=== PATIENT | female | born 1945 | race Caucasian/White ===

== ENCOUNTER 2017-03-15 01:38 | Emergency (ER) | payer OTHER ==
[~2017-03-15] VITALS: Ht 162.6 cm; Wt 66.0 kg
[2017-03-15 01:41] VITALS: BP 178/89; PULSE 90; RESP 16; TEMP 98.5; O2SAT 97
[2017-03-15] MEDS ORDERED: DEXAMETHASONE SOD PHOS 4 MG/ML VIAL IM ONE (02:00)
--- NOTE | 2017-03-15 02:01 | PD ---
HPI Chief Complaint: Respiratory Symptoms Time Seen by Provider: 01:51 Travel History International Travel<30 days: No Contact w/Intl Traveler<30days: No Traveled to known affect area: No History of Present Illness HPI 72-year-old female complains of coughing congestion and shortness of breath and wheezing. Patient has history asthma. Patient states that she has been using inhaler twice a day. Last used inhaler was yesterday. Patient states that she has productive cough today. Patient stated that she has some burning pain on the chest wall. Patient denies any fever chills. Patient states that she has shortness of breath this evening. Patient states the cough is persistent and productive. Patient denies any history hypertension, diabetes, dyslipidemia. Patient is a nonsmoker. Patient denies any history of CAD. On a scale of 1-10 the pain is a 3. PFSH Past Medical History Asthma: Yes Diminished Hearing: No Respiratory: Yes (BRONCHIAL ASTHMA) Influenza Vaccination: No Past Surgical History Cholecystectomy: Yes Social History Alcohol Use: No Tobacco Use: No Substance Use: No Allergies-Medications (Allergen,Severity, Reaction): Coded Allergies: No Known Allergies (Unverified , 03/15/17) Reported Meds & Prescriptions Reported Meds & Active Scripts Active Reported Ventolin Hfa 18 GM Inh (Albuterol Sulfate) 90 Mcg/Act Aer 2 Puff INH Q4-6H PRN Review of Systems General / Constitutional: No: Fever Eyes: No: Visual changes HENT: No: Headaches Cardiovascular: Positive: Chest Pain or Discomfort Respiratory: Positive: Cough, Shortness of Breath Gastrointestinal: No: Abdominal Pain Genitourinary: No: Dysuria Musculoskeletal: No: Pain Skin: No Rash Neurologic: No: Weakness Psychiatric: No: Depression Endocrine: No: Polydipsia Hematologic/Lymphatic: No: Easy Bruising Physical Exam Narrative GENERAL: Well-nourished, well-developed patient. SKIN: Focused skin assessment warm/dry. HEAD: Normocephalic. EYES: No scleral icterus. No injection or drainage. NECK: Supple, trachea midline. No JVD or lymphadenopathy. CARDIOVASCULAR: Regular rate and rhythm without murmurs, gallops, or rubs. RESPIRATORY: Breath sounds equal bilaterally. No accessory muscle use. Patient has mild expiratory wheezes bilaterally. Few rhonchi at the bases. GASTROINTESTINAL: Abdomen soft, non-tender, nondistended. MUSCULOSKELETAL: No cyanosis, or edema. BACK: Nontender without obvious deformity. No CVA tenderness. Neurologic exam normal. Data Data Last Documented VS Vital Signs Date Time Temp Pulse Resp B/P Pulse Ox O2 Delivery O2 Flow Rate FiO2 03/15/17 02:12 96 21 03/15/17 02:05 Room Air 03/15/17 01:41 98.5 90 16 178/89 Orders Chest, Single Ap (03/15/17 01:54) Albuterol-Ipratropium Neb (Duoneb Neb) (03/15/17 02:00) Dexamethasone Inj (Decadron Inj) (03/15/17 02:00) Electrocardiogram (03/15/17 01:56) Complete Blood Count With Diff (03/15/17 01:56) Comprehensive Metabolic Panel (03/15/17 01:56) Creatine Kinase (Cpk) (03/15/17 01:56) Troponin I (03/15/17 01:56) B-Type Natriuretic Peptide (03/15/17 01:56) Prothrombin Time / Inr (Pt) (03/15/17 01:56) Act Partial Throm Time (Ptt) (03/15/17 01:56) Iv Access Insert/Monitor (03/15/17 01:56) Ecg Monitoring (03/15/17 01:56) Oximetry (03/15/17 01:56) CKMB (03/15/17 02:00) CKMB% (03/15/17 02:00) Labs Laboratory Tests Test 03/15/17 02:00 White Blood Count 5.4 TH/MM3 Red Blood Count 4.34 MIL/MM3 Hemoglobin 14.1 GM/DL Hematocrit 39.8 % Mean Corpuscular Volume 91.6 FL Mean Corpuscular Hemoglobin 32.5 PG Mean Corpuscular Hemoglobin 35.5 % Concent Red Cell Distribution Width 13.0 % Platelet Count 187 TH/MM3 Mean Platelet Volume 8.6 FL Neutrophils (%) (Auto) 52.5 % Lymphocytes (%) (Auto) 34.1 % Monocytes (%) (Auto) 12.3 % Eosinophils (%) (Auto) 0.2 % Basophils (%) (Auto) 0.9 % Neutrophils # (Auto) 2.9 TH/MM3 Lymphocytes # (Auto) 1.9 TH/MM3 Monocytes # (Auto) 0.7 TH/MM3 Eosinophils # (Auto) 0.0 TH/MM3 Basophils # (Auto) 0.0 TH/MM3 CBC Comment DIFF FINAL Differential Comment Prothrombin Time 10.7 SEC Prothromb Time International 1.0 RATIO Ratio Activated Partial 28.1 SEC Thromboplast Time Sodium Level 142 MEQ/L Potassium Level 4.1 MEQ/L Chloride Level 110 MEQ/L Carbon Dioxide Level 25.3 MEQ/L Anion Gap 7 MEQ/L Blood Urea Nitrogen 15 MG/DL Creatinine 1.04 MG/DL Estimat Glomerular Filtration 52 ML/MIN Rate Random Glucose 88 MG/DL Calcium Level 8.8 MG/DL Total Bilirubin 0.4 MG/DL Aspartate Amino Transf 39 U/L (AST/SGOT) Alanine Aminotransferase 27 U/L (ALT/SGPT) Alkaline Phosphatase 72 U/L Total Creatine Kinase 486 U/L Troponin I LESS THAN 0.02 NG/ML Total Protein 7.0 GM/DL Albumin 3.9 GM/DL MDM Medical Decision Making Medical Screen Exam Complete: Yes Emergency Medical Condition: Yes Interpretation(s) Last Impressions Chest X-Ray 03/15/17 0154 Signed Impressions: Service Date/Time: February 01:55 - CONCLUSION: Normal examination. David Jurado MD 2:54 AM. CBC within normal limit. 3:15 AM. CMP within normal limit. Creatinine 1.04. Total CK 486. Troponin normal. Differential Diagnosis Differential diagnosis including viral syndrome, bronchitis, pneumonia, acute exacerbation of asthma, angina, TN, PE, pneumothorax. Narrative Course 72-year-old female with coughing congestion shortness of breath wheezing and congestion chest wall pain Diagnosis Primary Impression: Atypical chest pain Additional Impression: Acute asthma exacerbation Qualified Code: J45.21 - Mild intermittent asthma with acute exacerbation Patient Instructions: General Instructions Additional Instructions: Continue with albuterol inhaler every 4 hours as directed. Prednisone is directed. Z-Ezequiel as directed. Follow-up with personal physician. Return if worse. Med/Other Pt SpecificInfo: Prescription(s) given Scripts Prednisone 20 Mg Tab20 Mg PO BID #10 TAB Prov:Abdulaziz Trejo MD 03/15/17 Azithromycin (Zithromax Z-Ezequiel)250 Mg Gwpy302 Mg PO DIRECTED #1 DSPK 500 MG (2 tabs) day 1, then 1 tab days 2-5. Prov:Abdulaziz Trejo MD 03/15/17 Disposition: 01 DISCHARGE HOME Condition: Stable Abdulaziz Trejo MD Mar 15, 2017 02:01
[2017-03-15 02:05] VITALS: O2SAT 97
[2017-03-15 02:11] LABS: AUTOMATED NEUTROPHIL # 2.9 TH/MM3 (1.8-7.7); BASOPHIL % 0.9 % (0.0-2.0); EOSINOPHIL % 0.2 % (0.0-4.0); HEMATOCRIT 39.8 % (35.0-46.0); HEMO FLAGS DIFF FINAL; LYMPH % 34.1 % (9.0-44.0); LYMPHOCYTE # 1.9 TH/MM3 (1.0-4.8); MEAN CELL VOLUME 91.6 FL (80.0-100.0); MEAN CORPUSCULAR HEMOGLOBIN 32.5 PG (27.0-34.0); MEAN CORPUSCULAR HGB CONC 35.5 % (32.0-36.0); MONO % 12.3 % (0.0-8.0); NEUT % 52.5 % (16.0-70.0); PLATELET COUNT 187 TH/MM3 (150-450); RED BLOOD COUNT 4.34 MIL/MM3 (4.00-5.30); WHITE BLOOD COUNT 5.4 TH/MM3 (4.0-11.0)
[2017-03-15 02:12] VITALS: O2SAT 96
[2017-03-15] MEDS: RESP: ALBUTEROL 2.5 MG/IPRATROPIUM 0.5 MG NEB (SCH) INH ×2 (02:12→02:13)
[2017-03-15] MEDS ORDERED: VENTAER INH (02:13)
[2017-03-15 02:22] LABS: APTT (PATIENT) 28.1 SEC (24.3-30.1); PROTHROMBIN TIME - PATIENT 10.7 SEC (9.8-11.6)
--- NOTE | 2017-03-15 02:24 | RADRPT ---
EXAM DATE/TIME: 03/15/2017 01:55 [facility] COMPARISON: No previous studies available for comparison. INDICATIONS : Chest pressure. MEDICAL HISTORY : Asthma SURGICAL HISTORY : None. ENCOUNTER: Initial ACUITY: 1 day PAIN SCORE: 3/10 LOCATION: Bilateral chest FINDINGS: A single view of the chest demonstrates the lungs to be symmetrically aerated without evidence of mas s, infiltrate or effusion. The cardiomediastinal contours are unremarkable. Osseous structures are intact. CONCLUSION: Normal examination. David Jurado MD on March 15, 2017 at 2:22 Board Certified Radiologist. This report was verified electronically.
[2017-03-15 02:47] LABS: ALT (GPT) 27 U/L (10-53); ANION GAP 7 MEQ/L (5-15); AST (GOT) 39 U/L (15-37); BICARBONATE 25.3 MEQ/L (21.0-32.0); BLOOD UREA NITROGEN 15 MG/DL (7-18); CHLORIDE 110 MEQ/L (98-107); GLOMERULAR FILTRATION RATE 52 ML/MIN (>89); POTASSIUM 4.1 MEQ/L (3.5-5.1); SODIUM (NA) 142 MEQ/L (136-145)
[2017-03-15 03:11] LABS: ALKALINE PHOSPHATASE 72 U/L (45-117); CREATINE KINASE 486 U/L (26-192); TOTAL BILIRUBIN ADULT 0.4 MG/DL (0.2-1.0)
[2017-03-15] MEDS ORDERED: ZITHTAB PO (03:19)
[2017-03-15] MEDS ORDERED: PRED20 PO (03:19)
[2017-03-15 03:25] LABS: CKMB 4.3 NG/ML (0.5-3.6)
--- NOTE | 2017-03-15 12:21 | EKG ---
Date Performed: 03/15/2017 Time Performed: 02:06:53 PTAGE: 72 years EKG: Sinus rhythm NORMAL ECG NO PREVIOUS TRACING DOCTOR: Ramesh Ibarra Interpretating Date/Time 03/15/2017 12:19:20
== END 2017-03-15 03:52 | disposition home or self-care (01) ==
LOC: NEPE 01:38
DX: R07.89 Other chest pain (principal); J45.901 Unspecified asthma with (acute) exacerbation
CPT/HCPCS: 71010; 80053; 82550; 82552; 83880; 84484; 85025; 85610; 85730; 93005; 94640; 94664; 96372; 99285; J1100

== ENCOUNTER 2018-05-30 18:20 | Observation (INO) ==
[2018-05-30] MEDS ORDERED: Morphine Inj 4 MG/ML Vial IV.PUSH ONE (19:50)
--- NOTE | 2018-05-30 20:03 | XR ---
EXAM DATE: 05/30/2018 8:01 PM EDT AGE/SEX: 73 years / Female INDICATIONS: Chest pain CLINICAL DATA: This is the patient's initial encounter. Patient reports that signs and symptoms have been present for 2 days and indicates a pain score of 4/10. MEDICAL/SURGICAL HISTORY: Asthma. None. COMPARISON: [facility] – [place], [place], CHEST SINGLE AP, 03/15/2017. . FINDINGS: A single AP view of the chest demonstrates the lungs to be symmetrically aerated without evidence of mass, infiltrate or effusion. The cardiomediastinal contours are unremarkable. Osseous structures a re intact. CONCLUSION: Stable chest with no acute disease Electronically signed by: Melecio Bowens MD 05/30/2018 8:02 PM EDT
[2018-05-30 20:18] LABS: Baso % (Auto) 0.3 % (0.0-2.0); Hematocrit 44.1 % (35.0-46.0); Lymph # (Auto) 1.5 th/mm3 (1.0-4.8); Lymph % (Auto) 29.8 % (9.0-44.0); Mean Corpuscular HGB Conc 34.1 % (32.0-36.0); Mean Corpuscular Hemoglobin 31.4 pg (27.0-34.0); Mean Corpuscular Volume 91.9 fL (80.0-100.0); Mean Platelet Volume 8.9 fL (7.0-11.0); Mono # (Auto) 0.5 th/mm3 (0.0-0.9); Mono % (Auto) 10.8 % (0.0-8.0); Neut # (Auto) 2.9 th/mm3 (1.8-7.7); Neut % (Auto) 59.1 % (16.0-70.0); Platelet Count 183 th/mm3 (150-450); Red Cell Distribution Width 13.6 % (11.6-17.2); White Blood Count 4.9 th/mm3 (4.0-11.0)
[2018-05-30 20:34] LABS: Alanine Aminotransferase 21 U/L (10-53); Albumin 4.1 g/dL (3.4-5.0); Anion Gap 8 meq/L (5-15); Aspartate Aminotransferase 19 U/L (15-37); Blood Urea Nitrogen 13 mg/dL (7-18); Calcium 9.2 mg/dL (8.5-10.1); Carbon Dioxide 26.2 meq/L (21.0-32.0); Chloride 108 meq/L (98-107); Glomerular Filtration Rate 51 mL/min (>89); Glucose,Random 85 mg/dL (74-106); Potassium 3.7 meq/L (3.5-5.1); Sodium 142 meq/L (136-145)
--- NOTE | 2018-05-30 20:35 | ED ---
HPI General Chief Complaint: Chest Pain Stated Complaint: dizzyness/chest pain Time Seen by Provider: 05/30/18 19:17 Source: patient Mode of arrival: ambulatory Limitations: no limitations History of Present Illness HPI narrative: 73-year-old female arrives with a complaint of chest pressure. It started yesterday at rest. Associated symptoms include dyspnea. There is a pleuritic component. Pain involves the entire chest and the back as well. Chest pain worsened today. Patient denies cough fever. She reports some lightheadedness as if she is going to lose consciousness. She also reports some wheezing. There is a family history coronary artery disease. The patient denies medical history otherwise. MD complaint: chest pain Complete Quality Measures for STEMI Alert Patients STEMI Alert: No Onset (ago): day(s) (1.5) Duration: intermittent Quality: heaviness Pain radiation: back Exacerbating factors: inspiration Associated symptoms: dyspnea Treatments prior to arrival chest pain: none Related Data Home Medications Medication Instructions Recorded Confirmed No Known Home Medications 05/30/18 05/30/18 Allergies Allergy/AdvReac Type Severity Reaction Status Date / Time No Known Allergies Allergy Uncoded 03/15/17 01:44 Review of Systems Except as stated in HPI: all other systems reviewed are negative Constitutional Denies fever(s) PMFSH Medical History Medical History Asthma (Acute) FHx: cholecystectomy (Acute) H/O: hysterectomy (Acute) Mitral valve prolapse (Acute) Social History Social History Substance History: No History of Abuse Second Hand Smoke Exposure: No Smoking Status: Never smoker How Often Do You Have a Drink Containing Alcohol: Never Recent Travel in [facility] within the Last 8 Weeks: No Recent Out of Country Travel within the Last 8 Weeks: No Immunization History Tetanus Immunization: >5 Years Hx Influenza Vaccine This Season: No Exam Narrative Exam Narrative: GENERAL: Well-developed well-nourished 73-year-old female SKIN: Focused skin assessment warm/dry. HEAD: Atraumatic. Normocephalic. EYES: Pupils equal and round. No scleral icterus. No injection or drainage. ENT: No nasal bleeding or discharge. Mucous membranes pink and moist. NECK: Trachea midline. No JVD. CARDIOVASCULAR: Regular rate and rhythm. No murmur appreciated. RESPIRATORY: No accessory muscle use. Clear to auscultation. Breath sounds equal bilaterally. GASTROINTESTINAL: Abdomen soft, non-tender, nondistended. Hepatic and splenic margins not palpable. MUSCULOSKELETAL: No obvious deformities. No clubbing. No cyanosis. No edema. NEUROLOGICAL: Awake and alert. No obvious cranial nerve deficits. Motor grossly within normal limits. Normal speech. PSYCHIATRIC: Appropriate mood and affect; insight and judgment normal. Course Initial Documented Vital Signs Temperature 97.5 F L 05/30/18 18:28 Pulse Rate 87 05/30/18 18:28 Respiratory Rate 18 05/30/18 18:28 Blood Pressure 160/76 H 05/30/18 18:28 Pulse Oximetry 97 05/30/18 18:28 Last Documented Vital Signs Temperature 97.5 F L 05/30/18 18:28 Pulse Rate 72 05/30/18 22:17 Respiratory Rate 16 05/30/18 22:17 Blood Pressure 168/78 H 05/30/18 22:17 Pulse Oximetry 99 05/30/18 22:17 Medical Decision Making MDM Narrative Medical decision making narrative: Coronary calcifications are present on CT pulmonary angiogram. The patient would benefit from chest pain center evaluation. Patient agreeable with plan. Patient reassessed at approximately 10:30 PM reports persistent shortness of breath. Oxygen applied. Nitrogen ordered. There is no PE or pneumonia. Lab Data Lab results reviewed: Yes I reviewed the patient's lab results. Result diagrams: 05/30/18 20:00 05/30/18 20:00 Lab Results 05/30/18 05/30/18 05/30/18 Range/Units 20:00 20:00 20:00 WBC 4.9 (4.0-11.0) th/mm3 RBC 4.80 (4.00-5.30) mil/mm3 Hgb 15.0 (11.6-15.3) gm/dL Hct 44.1 (35.0-46.0) % MCV 91.9 (80.0-100.0) fL MCH 31.4 (27.0-34.0) pg MCHC 34.1 (32.0-36.0) % RDW 13.6 (11.6-17.2) % Plt Count 183 (150-450) th/mm3 MPV 8.9 (7.0-11.0) fL Neut % (Auto) 59.1 (16.0-70.0) % Lymph % (Auto) 29.8 (9.0-44.0) % Winkler % (Auto) 10.8 H (0.0-8.0) % Eos % (Auto) 0.0 (0.0-4.0) % Baso % (Auto) 0.3 (0.0-2.0) % Neut # (Auto) 2.9 (1.8-7.7) th/mm3 Lymph # (Auto) 1.5 (1.0-4.8) th/mm3 Winkler # (Auto) 0.5 (0.0-0.9) th/mm3 Eos # (Auto) 0.0 (0.0-0.4) th/mm3 Baso # (Auto) 0.0 (0.0-0.2) th/mm3 WBC Differential . Differential Comment Auto diff final PT 10.1 (9.8-11.6) sec INR 1.0 Ratio APTT 27.1 (24.3-30.1) sec Sodium 142 (136-145) meq/L Potassium 3.7 (3.5-5.1) meq/L Chloride 108 H (98-107) meq/L Carbon Dioxide 26.2 (21.0-32.0) meq/L Anion Gap 8 (5-15) meq/L BUN 13 (7-18) mg/dL Creatinine 1.05 H (0.50-1.00) mg/dL Estimated GFR 51 L (>89) mL/min Random Glucose 85 (74-106) mg/dL Calcium 9.2 (8.5-10.1) mg/dL Magnesium 3.0 H (1.5-2.5) mg/dL Total Bilirubin 0.7 (0.2-1.0) mg/dL AST 19 (15-37) U/L ALT 21 (10-53) U/L Alkaline Phosphatase 76 (45-117) U/L Total Creatine Kinase 124 (26-192) U/L CK-MB (CK-2) 1.1 (0.5-3.6) ng/mL Troponin I Less than 0.02 L (0.02-0.05) ng/mL B-Natriuretic Peptide (0-100) pg/mL Total Protein 7.4 (6.4-8.2) g/dL Albumin 4.1 (3.4-5.0) g/dL 05/30/18 Range/Units 20:00 WBC (4.0-11.0) th/mm3 RBC (4.00-5.30) mil/mm3 Hgb (11.6-15.3) gm/dL Hct (35.0-46.0) % MCV (80.0-100.0) fL MCH (27.0-34.0) pg MCHC (32.0-36.0) % RDW (11.6-17.2) % Plt Count (150-450) th/mm3 MPV (7.0-11.0) fL Neut % (Auto) (16.0-70.0) % Lymph % (Auto) (9.0-44.0) % Winkler % (Auto) (0.0-8.0) % Eos % (Auto) (0.0-4.0) % Baso % (Auto) (0.0-2.0) % Neut # (Auto) (1.8-7.7) th/mm3 Lymph # (Auto) (1.0-4.8) th/mm3 Winkler # (Auto) (0.0-0.9) th/mm3 Eos # (Auto) (0.0-0.4) th/mm3 Baso # (Auto) (0.0-0.2) th/mm3 WBC Differential Differential Comment PT (9.8-11.6) sec INR Ratio APTT (24.3-30.1) sec Sodium (136-145) meq/L Potassium (3.5-5.1) meq/L Chloride (98-107) meq/L Carbon Dioxide (21.0-32.0) meq/L Anion Gap (5-15) meq/L BUN (7-18) mg/dL Creatinine (0.50-1.00) mg/dL Estimated GFR (>89) mL/min Random Glucose (74-106) mg/dL Calcium (8.5-10.1) mg/dL Magnesium (1.5-2.5) mg/dL Total Bilirubin (0.2-1.0) mg/dL AST (15-37) U/L ALT (10-53) U/L Alkaline Phosphatase (45-117) U/L Total Creatine Kinase (26-192) U/L CK-MB (CK-2) (0.5-3.6) ng/mL Troponin I (0.02-0.05) ng/mL B-Natriuretic Peptide 23 (0-100) pg/mL Total Protein (6.4-8.2) g/dL Albumin (3.4-5.0) g/dL Troponin is undetectable and the BNP is 23 Imaging Data Radiologist's impression: ITS Impressions Chest CTA 05/30/18 19:50 CONCLUSION: No evidence of pulmonary embolism. Chest X-Ray 05/30/18 19:50 CONCLUSION: Stable chest with no acute disease ECG Data EKG Prior to Arrival: Yes Attestation: I personally reviewed and interpreted this ECG as follows: Prior ECG tracings: not available for review Interpretation: EKG shows sinus rhythm with a rate of 73 normal axis and intervals Discharge Plan Discharge Disposition Patient Disposition: 30 Still Patient Physicians Team ED Provider: Nolberto Mo Primary Care Provider: Darryl Walsh Attending Provider: Guy Schwartz Discharge Interventions Interventions: Vital Signs Last Done: 05/30/18 20:00 Status ED Status: Admitted Observation Patient
[2018-05-30 20:39] LABS: Alkaline Phosphatase 76 U/L (45-117); Creatine Kinase 124 U/L (26-192); Total Protein 7.4 g/dL (6.4-8.2)
[2018-05-30 20:42] LABS: Activated Partial Thrombo Time 27.1 sec (24.3-30.1); Prothrombin Time 10.1 sec (9.8-11.6)
[2018-05-30 20:52] LABS: Creatine Kinase MB 1.1 ng/mL (0.5-3.6)
--- NOTE | 2018-05-30 21:48 | ECG ---
Date Performed: 05/30/2018 Time Performed: 19:06:58 PTAGE: 73 years EKG: Sinus rhythm NORMAL ECG No significant change from prior electrocardiogram. DOCTOR: Heber Barba Interpretating Date/Time 05/30/2018 21:47:12
--- NOTE | 2018-05-30 21:51 | CT ---
EXAM DATE: 05/30/2018 9:46 PM EDT AGE/SEX: 73 years / Female INDICATIONS: Chest pain; rule out pulmonary embolus. CLINICAL DATA: This is the patient's initial encounter. Patient reports that signs and symptoms have been present for 1 day and indicates a pain score of 6/10. MEDICAL/SURGICAL HISTORY: Asthma. Mitral valve prolapse None. RADIATION DOSE: 11.04 CTDI (mGy) COMPARISON: No prior exams available for comparison. TECHNIQUE: Volumetric scanning was performed using a multi-row detector CT scanner during bolus infu hamida of 74 ml Omnipaque 350 (iohexol) nonionic water-soluble contrast as a single exam dose. The carolann a was post processed with a variety of visualization algorithms including full volume maximum intensi ty projection and sliding thin slab reformation. Using automated exposure control and adjustment of the mA and/or kV according to patient size, radiation dose was kept as low as reasonably achievable t o obtain optimal diagnostic quality images. DICOM format image data is available electronically for review and comparison. FINDINGS: Pulmonary Arteries: No filling defects are seen in the pulmonary arteries out to the subsegmental ve ssels. The left and right pulmonary arteries are normal in diameter. Lung: Patchy atelectasis or pleural-parenchymal scarring. Densely calcified granulomas in the right midlung. Effusion: None. Mediastinum: Calcified right hilar and central mediastinal lymph nodes. Atherosclerotic calcificatio ns, including within the coronaries. No suspicious mass. Other: The axilla is unremarkable. Hepatic cysts CONCLUSION: No evidence of pulmonary embolism. Electronically signed by: Melecio Bowens MD 05/30/2018 9:50 PM EDT
[2018-05-30] MEDS ORDERED: Temazepam 15 MG Capsule PO PRN (22:03)
[2018-05-30] MEDS ORDERED: ALPRAZolam 0.25 MG Tablet PO PRN (22:03)
[2018-05-30] MEDS: Morphine Inj 4 MG/ML Vial IV.PUSH PRN (22:19)
[2018-05-31 00:51] LABS: Creatine Kinase 109 U/L (26-192)
[2018-05-31] MEDS: Morphine Inj 4 MG/ML Vial IV.PUSH PRN (02:34)
[2018-05-31 03:43] LABS: Creatine Kinase 125 U/L (26-192)
[2018-05-31] MEDS ORDERED: MethylPREDNISolone Sod Succinate Inj 40 MG/ML Vial IV.PUSH ONE (08:16)
--- NOTE | 2018-05-31 09:01 | P.HPCA ---
History of Present Illness Primary Care Physician: Darryl Walsh Chief Complaint: Chest pain History of Present Illness: This is a 73-year-old female that presents to ED via private vehicle with a complaint of developing chest discomfort. She describes a pressure that has been constant on and off for 3/2 days. It worsened yesterday. Found nothing in particular to worsen or improve. She has been short of breath. Worsened with deep inspiration. Denies nausea or diaphoresis. States she has felt a few times that she could pass out. She has had a predominantly nonproductive cough as well. She is notes little wheezing. She states she has history of asthma. States at one point she had similar, issues in the past and told her that it was related to bronchial asthma. She was given antibiotics and an inhaler however she states she cannot afford the inhaler never filled. Denies recent travel. Denies fevers or chills. Patient non-smoker. Denies alcohol or illicit drug use. Surgical history: Hysterectomy and cholecystectomy. Cannot recall prior cardiac catheterization. Family history cannot recall family history of CAD. - Diagnosis (1) Chest pain (2) Asthma Inpatient Certification: I certify that the inpatient services were ordered in accordance with Medicare regulations governing the order. This includes certification that hospital inpatient services are reasonable and necessary and in the case of services not specified as inpatient-only under 42 CFR 419.22(n), that they are appropriately provided as inpatient services in accordance to with the 2-midnight benchmark under 43 CFR 412.3(e) Review of Systems General: Patient denies fevers, chills, and recent travel. HEENT: Patient denies headache, sore throat, difficulty swallowing. Cardiovascular: Has the chest discomfort as mentioned above. Denies sensation of heart beating rapidly or irregularly. No syncope. Denies diaphoresis. Respiratory: She has been short of breath. Also pain is increased with deep inspiration. Denies coughing wheezing or hemoptysis. GI: Patient denies nausea, vomiting, diarrhea, abdominal pain, bloody stools. Musculoskeletal: Patient denies joint pain or edema. Denies calf pain or edema. Neurovascular: Patient denies numbness, tingling, weakness in extremities. Denies headache. Endocrine: Denies polyuria and polydipsia. Hematologic: Denies easy bruising. Skin: Denies rash or itching. PMFSH - History History Provided By: Patient - Medical History Medical History: Medical History (Last Updated 05/30/18 @ 19:01 by Sandra Rayo) Asthma FHx: cholecystectomy H/O: hysterectomy Mitral valve prolapse - Tobacco History Second Hand Smoke Exposure: No Tobacco Use In Past 30 Days: No Smoking Status: Never smoker - Alcohol History How Often Do You Have a Drink Containing Alcohol: Never - Substance Use History Substance History: No History of Abuse - Travel History Recent Travel in the [place] Within the Last 8 Weeks: No Recent Travel Out of the Country Within the Last 8 Weeks: No - Immunization History Tetanus Immunization: >5 Years Hx Influenza Vaccine This Season: No Medications and Allergies Active Medications: Active Medications Hydrocodone Bitart/Acetaminophen ([place] 7.5/325) 1 tab PO Q4H PRN PRN Reason: PAIN SCALE 1 TO 7 Last Admin: 05/31/18 07:56 Dose: 1 tab Albuterol (Duoneb Neb (Prn)) 1 ampul NEB Q4HR NEB PRN PRN Reason: SHORTNESS OF BREATH/WHEEZING Last Admin: 05/31/18 08:48 Dose: 1 ampul Alprazolam (Xanax) 0.25 mg PO Q8H PRN PRN Reason: ANXIETY Last Admin: 05/31/18 01:21 Dose: 0.25 mg Morphine Sulfate (Morphine Inj) 2 mg IV.PUSH Q4H PRN PRN Reason: PAIN SCALE 8 TO 10 Last Admin: 05/31/18 02:34 Dose: 2 mg Nitroglycerin (Nitrostat Sl) 0.4 mg SL Q5M PRN PRN Reason: CHEST PAIN Last Admin: 05/30/18 22:48 Dose: 0.4 mg Sodium Chloride (Ns Flush) 2 ml IV.FLUSH UNSCH PRN PRN Reason: FLUSH AFTER USING IV ACCESS Last Admin: 05/30/18 20:01 Dose: 2 ml Sodium Chloride (Ns Flush) 2 ml IV.FLUSH BID DAVE Last Admin: 05/31/18 07:59 Dose: Not Given Sodium Chloride (Ns Flush) 2 ml IV.FLUSH PRN PRN PRN Reason: FLUSH AFTER USING IV ACCESS Temazepam (Restoril) 15 mg PO HS PRN PRN Reason: INSOMNIA Allergies Allergy/AdvReac Type Severity Reaction Status Date / Time No Known Allergies Allergy Uncoded 03/15/17 01:44 Home Medications Medication Instructions Recorded Confirmed Type No Known Home Medications 05/30/18 05/30/18 History Exam Vital signs: Vital Signs 05/30/18 18:28 05/30/18 19:50 05/30/18 20:00 Temperature 97.5 F L Pulse Rate 87 72 Respiratory Rate 18 15 Blood Pressure 160/76 H Pulse Oximetry 97 98 98 05/30/18 20:05 05/30/18 20:10 05/30/18 22:12 Temperature Pulse Rate 81 72 Respiratory Rate 15 15 14 Blood Pressure 130/61 126/56 L Pulse Oximetry 96 95 05/30/18 22:17 05/30/18 22:44 05/30/18 23:02 Temperature Pulse Rate 72 75 Respiratory Rate 16 16 16 Blood Pressure 168/78 H 139/78 Pulse Oximetry 99 98 05/31/18 00:00 05/31/18 03:36 05/31/18 07:42 Temperature 97.9 F 97.6 F 97.5 F L Pulse Rate 60 73 66 Respiratory Rate 19 18 17 Blood Pressure 153/75 H 166/79 H 136/69 Pulse Oximetry 99 96 98 Intake & Output 05/30/18 05/31/18 05/31/18 18:59 06:59 18:59 Weight 66.224 kg 66.224 kg Other: Weight On Admission 66.224 kg Narrative: GENERAL: This is a well-nourished, well-developed patient, in no apparent distress. Patient speaks in clear complete sentences. Patient is pleasant. HEENT: Head is atraumatic and normocephalic. Neck is supple without lymphadenopathy and trachea is midline. No JVD or carotid bruits. CARDIOVASCULAR: Regular rate and rhythm without murmurs, gallops, or rubs. RESPIRATORY: Scattered expiratory wheezing. Breath sounds equal bilaterally. No rales or rhonchi. Chest wall is nontender. No use of accessory muscles. GASTROINTESTINAL: Abdomen is nontender, nondistended. Abdomen soft. No obvious pulsatile mass or bruit. No CVA tenderness. Strong femoral pulses bilaterally. Normal bowel sounds in all quadrants. MUSCULOSKELETAL: Patient is moving upper and lower extremities freely. No calf tenderness or edema, no Homans sign. Strong pulses in upper and lower extremities. NEUROLOGICAL: Patient is alert and oriented. Cranial nerves 2-12 are grossly intact. No focal deficits and speech is clear. SKIN: No rash and turgor is normal. Results 05/30/18 20:00 05/30/18 20:00 Cardiac Enzymes 05/30/18 05/30/18 05/31/18 Range/Units 20:00 20:00 00:15 AST 19 (15-37) U/L CK-MB (CK-2) 1.1 (0.5-3.6) ng/mL Troponin I Less than 0.02 L Less than 0.02 L (0.02-0.05) ng/mL B-Natriuretic Peptide 23 (0-100) pg/mL 05/31/18 Range/Units 02:40 AST (15-37) U/L CK-MB (CK-2) (0.5-3.6) ng/mL Troponin I Less than 0.02 L (0.02-0.05) ng/mL B-Natriuretic Peptide (0-100) pg/mL Coagulation 05/30/18 05/30/18 Range/Units 20:00 20:00 PT 10.1 (9.8-11.6) sec APTT 27.1 (24.3-30.1) sec B-Natriuretic Peptide 23 (0-100) pg/mL CBC 05/30/18 Range/Units 20:00 WBC 4.9 (4.0-11.0) th/mm3 RBC 4.80 (4.00-5.30) mil/mm3 Hgb 15.0 (11.6-15.3) gm/dL Hct 44.1 (35.0-46.0) % Plt Count 183 (150-450) th/mm3 Neut # (Auto) 2.9 (1.8-7.7) th/mm3 Lymph # (Auto) 1.5 (1.0-4.8) th/mm3 [place] # (Auto) 0.5 (0.0-0.9) th/mm3 Eos # (Auto) 0.0 (0.0-0.4) th/mm3 Baso # (Auto) 0.0 (0.0-0.2) th/mm3 Comprehensive Metabolic Panel 05/30/18 Range/Units 20:00 Sodium 142 (136-145) meq/L Potassium 3.7 (3.5-5.1) meq/L Chloride 108 H (98-107) meq/L Carbon Dioxide 26.2 (21.0-32.0) meq/L BUN 13 (7-18) mg/dL Creatinine 1.05 H (0.50-1.00) mg/dL Calcium 9.2 (8.5-10.1) mg/dL AST 19 (15-37) U/L ALT 21 (10-53) U/L Alkaline Phosphatase 76 (45-117) U/L Total Protein 7.4 (6.4-8.2) g/dL Albumin 4.1 (3.4-5.0) g/dL Intake and Output 05/30/18 05/31/18 05/31/18 22:59 06:59 14:59 Other: Weight 66.224 kg 66.224 kg Weight On Admission 66.224 kg EKG interpretations - EKG EKG shows: sinus rhythm (EKGs are sinus rhythm without significant ST segment depressions or elevations.) Caprini VTE Risk Assessment Caprini VTE Risk Assessment: Moderate/High Risk (score >= 2) Caprini Risk Assessment Model: Point Value = 1 Point Value = 2 Point Value = 3 Point Value = 5 Age 41-60 Minor surgery BMI > 25 kg/m2 Swollen legs Varicose veins or History of unexplained or recurrent spontaneous Oral contraceptives or hormone replacement Sepsis (< 1 month) Serious lung disease, including pneumonia (< 1 month) Abnormal pulmonary function Acute myocardial infarction Congestive heart failure (< 1 month) History of inflammatory bowel disease Medical patient at bed rest Age 61-74 Arthroscopic surgery Major open surgery (> 45 min) Laparoscopic surgery (> 45 min) Malignancy Confined to bed (> 72 hours) Immobilizing plaster cast Central venous access Age >= 75 History of VTE Family history of VTE Factor V Leiden Prothrombin [id number] Lupus anticoagulant Anticardiolipin antibodies Elevated serum homocysteine Heparin-induced thrombocytopenia Other congenital or acquired thrombophilia Stroke (< 1 month) Elective arthroplasty Hip, pelvis, or leg fracture Acute spinal cord injury (< 1 month) Prophylaxis Regimen: Total Risk Factor Score Risk Level Prophylaxis Regimen 0-1 Low Early ambulation 2 Moderate Order ONE of the following: *Sequential Compression Device (SCD) *Heparin 5000 units SQ BID 3-4 Higher Order ONE of the following medications: *Heparin 5000 units SQ TID *Enoxaparin/Lovenox 40 mg SQ daily (WT < 150 kg, CrCl > 30 mL/min) *Enoxaparin/Lovenox 30 mg SQ daily (WT < 150 kg, CrCl > 10-29 mL/min) *Enoxaparin/Lovenox 30 mg SQ BID (WT < 150 kg, CrCl > 30 mL/min) AND/OR *Sequential Compression Device (SCD) 5 or more Highest Order ONE of the following medications: *Heparin 5000 units SQ TID (Preferred with Epidurals) *Enoxaparin/Lovenox 40 mg SQ daily (WT < 150 kg, CrCl > 30 mL/min) *Enoxaparin/Lovenox 30 mg SQ daily (WT < 150 kg, CrCl > 10-29 mL/min) *Enoxaparin/Lovenox 30 mg SQ BID (WT < 150 kg, CrCl > 30 mL/min) AND *Sequential Compression Device (SCD) Assessment and Plan - Assessment (1) Chest pain Code(s): R07.9 - Chest pain, unspecified Status: Acute (2) Asthma Code(s): J45.909 - Unspecified asthma, uncomplicated Status: Acute - Plan * Chest pain: Patient has had serial cardiac enzymes and EKGs for ruling out purposes. She was seen by Dr. Ramesh Ibarra of cardiology in the chest pain center. She will be given Solu-Medrol IV dose 1 and duo nebs 1 and then as needed. She will have a Lexiscan. Patient likely be discharged home if stress test is nonischemic with instructions to follow-up with PCP. Return to ED for interval issues. * Asthma: She has had asthma for some time. Patient was given Solu-Medrol IV in chest pain center. She is given duo nebs. She will be given a prescription of Z-Ezequiel and an albuterol inhaler. She is to follow-up with PCP. Patient is agreeable to this plan. She is stable at this time. H&P: Quality - VTE Deep Vein Thrombosis/Pulmonary Embolism Present on Admission: No
--- NOTE | 2018-05-31 14:27 | ECG ---
Date Performed: 05/31/2018 Time Performed: 02:48:56 PTAGE: 73 years EKG: SINUS BRADYCARDIA WITH SHORT MA INTERVAL BORDERLINE ECG PREVIOUS TRACING : 05/30/2018 19.06 Since previous tracing, no significant change noted DOCTOR: Ramesh Ibarra Interpretating Date/Time 05/31/2018 14:26:53
--- NOTE | 2018-05-31 14:30 | ECG ---
Date Performed: 05/31/2018 Time Performed: 05:22:01 PTAGE: 73 years EKG: SINUS BRADYCARDIA BORDERLINE ECG PREVIOUS TRACING : 05/31/2018 02.48 Since previous tracing, no significant change noted DOCTOR: Ramesh Ibarra Interpretating Date/Time 05/31/2018 14:28:59
== END 2018-05-31 10:00 | disposition left against medical advice (07) ==
LOC: NEPE 18:20 → NEPHCDU 18:20 → NEDA 18:20 → NEPHCDU 05-31 00:48
PROVIDERS: ADMIT Internal Medicine Interventional Cardiology; ATTEND Internal Medicine Interventional Cardiology

== ENCOUNTER 2018-06-03 13:33 | Observation (INO) ==
--- NOTE | 2018-06-03 14:07 | ED ---
HPI General Chief complaint: Chest Pain Stated complaint: CHEST PAIN Time Seen by Provider: 06/03/18 13:53 History of Present Illness HPI narrative: Patient 73-year-old female presents emergency department for the third time this month for evaluation of chest pain shortness of breath. Patient was initially admitted to the hospital fourth of this month the chest pain center, was recommended that she have a stress test according to the notes. No stress testing is been seen in the EMR. Per the patient she was told that she had a "calcified heart" and that she could put herself through 2 hours of testing but it would not matter according to her. This is what she was told by the physician. This is not documented. The consultation from the cardiac chest pain center stated that she was to have a stress test and she ultimately did not have one. She called her primary care physician today who recommended that she come back to the hospital and what ever tests were recommended she hit that physician would follow her on discharge. Patient states she feels like a heavy sensation in the middle of her chest like something sitting on her. No radiation. Has not tried anything prior to arrival in the ER. She was seen additional time after the chest pain center and referred outpatient to cardiology but she has not followed up with. She cannot remember the name of her primary care physician. She states that her chest pain got more severe this morning. Onset (ago): day(s) Location: chest Radiation: non-radiation Severity: severe Quality: crushing Pain Consistency: constant Associated symptoms: shortness of breath Related Data Home Medications Medication Instructions Recorded Confirmed No Known Home Medications 06/03/18 06/03/18 Allergies Allergy/AdvReac Type Severity Reaction Status Date / Time No Known Allergies Allergy Verified 06/03/18 13:44 Review of Systems Except as stated in HPI: all other systems reviewed are negative PMFSH Social History Social History Substance History: No History of Abuse Second Hand Smoke Exposure: No Smoking Status: Never smoker How Often Do You Have a Drink Containing Alcohol: Never Recent Travel in [place] within the Last 8 Weeks: No Recent Out of Country Travel within the Last 8 Weeks: No Exam Narrative Exam Narrative: GENERAL: Well-developed well-nourished in no obvious distress bright red hair. SKIN: Focused skin assessment warm/dry. HEAD: Atraumatic. Normocephalic. EYES: Pupils equal and round. No scleral icterus. No injection or drainage. ENT: No nasal bleeding or discharge. Mucous membranes pink and moist. NECK: Trachea midline. No JVD. CARDIOVASCULAR: Regular rate and rhythm. No murmur appreciated. RESPIRATORY: No accessory muscle use. Clear to auscultation. Breath sounds equal bilaterally. GASTROINTESTINAL: Abdomen soft, non-tender, nondistended. Hepatic and splenic margins not palpable. MUSCULOSKELETAL: No obvious deformities. No clubbing. No cyanosis. No edema. NEUROLOGICAL: Awake and alert. No obvious cranial nerve deficits. Motor grossly within normal limits. Normal speech. PSYCHIATRIC: Appropriate mood and affect; insight and judgment normal. Course Initial Documented Vital Signs Temperature 98.1 F 06/03/18 13:44 Pulse Rate 87 06/03/18 13:44 Respiratory Rate 18 06/03/18 13:44 Blood Pressure 152/93 H 06/03/18 13:44 Pulse Oximetry 95 06/03/18 13:44 Last Documented Vital Signs Temperature 98.1 F 06/03/18 13:44 Pulse Rate 69 06/03/18 14:45 Respiratory Rate 18 06/03/18 14:45 Blood Pressure 124/72 06/03/18 14:45 Pulse Oximetry 97 06/03/18 14:45 Medical Decision Making MDM Narrative Medical decision making narrative: Patient room to the emergency department, states that it feels severe crushing pain in her chest, no radiation associated with shortness of breath. Patient appears quite comfortable, discussed with her that the only additional testing I have to offer her at this juncture would be stress testing and I would be happy to put her in the hospital overnight for it. She is agreeable. I discussed that after that she would have to follow up with her primary care physician for additional testing. Final diagnosis chest pain Differential Diagnosis Differential Diagnosis: ACS, WI, anxiety, PE is already been excluded, congestive heart failure excluded clinically, Lab Data Result diagrams: 06/03/18 14:10 06/03/18 14:10 Lab Results 06/03/18 06/03/18 06/03/18 Range/Units 14:10 14:10 14:10 CBC w Diff Auto diff final WBC 4.5 (4.0-11.0) th/mm3 RBC 4.50 (4.00-5.30) mil/mm3 Hgb 14.1 (11.6-15.3) gm/dL Hct 41.7 (35.0-46.0) % MCV 92.6 (80.0-100.0) fL MCH 31.4 (27.0-34.0) pg MCHC 33.9 (32.0-36.0) % RDW 12.6 (11.6-17.2) % Plt Count 166 (150-450) th/mm3 MPV 8.9 (7.0-11.0) fL Neut % (Auto) 61.6 (16.0-70.0) % Lymph % (Auto) 29.7 (9.0-44.0) % [place] % (Auto) 7.9 (0.0-8.0) % Eos % (Auto) 0.0 (0.0-4.0) % Baso % (Auto) 0.8 (0.0-2.0) % Neut # (Auto) 2.8 (1.8-7.7) th/mm3 Lymph # (Auto) 1.3 (1.0-4.8) th/mm3 [place] # (Auto) 0.4 (0.0-0.9) th/mm3 Eos # (Auto) 0.0 (0.0-0.4) th/mm3 Baso # (Auto) 0.0 (0.0-0.2) th/mm3 WBC Differential . Differential Comment . PT 10.2 (9.8-11.6) sec INR 1.0 Ratio APTT 25.9 (24.3-30.1) sec Sodium 142 (136-145) meq/L Potassium 3.9 (3.5-5.1) meq/L Chloride 109 H (98-107) meq/L Carbon Dioxide 25.9 (21.0-32.0) meq/L Anion Gap 7 (5-15) meq/L BUN 15 (7-18) mg/dL Creatinine 1.00 (0.50-1.00) mg/dL Estimated GFR 54 L (>89) mL/min Random Glucose 94 (74-106) mg/dL Calcium 8.8 (8.5-10.1) mg/dL Magnesium 2.2 (1.5-2.5) mg/dL Total Creatine Kinase 247 H (26-192) U/L CK-MB (CK-2) 3.4 (0.5-3.6) ng/mL CK-MB (CK-2) % 1.4 (0.0-4.0) % Troponin I Less than 0.02 L (0.02-0.05) ng/mL Discharge Plan Discharge Disposition Patient Disposition: 30 Still Patient Physicians Team ED Provider: Robles Barr Primary Care Provider: Lexy Wong Rxs /Orders / Referrals /Forms Prescriptions: No Action No Known Home Medications RF: 0 Discharge Instructions Patient Printed Instructions: Chest Pain (ED) Discharge Interventions Interventions: Vital Signs Last Done: 06/03/18 13:58 Status ED Status: Admitted Observation Patient
[2018-06-03 14:24] LABS: Baso % (Auto) 0.8 % (0.0-2.0); Hematocrit 41.7 % (35.0-46.0); Hemoglobin 14.1 gm/dL (11.6-15.3); Lymph # (Auto) 1.3 th/mm3 (1.0-4.8); Lymph % (Auto) 29.7 % (9.0-44.0); Mean Corpuscular HGB Conc 33.9 % (32.0-36.0); Mean Corpuscular Hemoglobin 31.4 pg (27.0-34.0); Mean Corpuscular Volume 92.6 fL (80.0-100.0); Mean Platelet Volume 8.9 fL (7.0-11.0); Mono # (Auto) 0.4 th/mm3 (0.0-0.9); Mono % (Auto) 7.9 % (0.0-8.0); Neut # (Auto) 2.8 th/mm3 (1.8-7.7); Neut % (Auto) 61.6 % (16.0-70.0); Platelet Count 166 th/mm3 (150-450); Red Cell Distribution Width 12.6 % (11.6-17.2); White Blood Count 4.5 th/mm3 (4.0-11.0)
[2018-06-03 14:32] LABS: Chloride 109 meq/L (98-107); Potassium 3.9 meq/L (3.5-5.1); Sodium 142 meq/L (136-145)
[2018-06-03 14:34] LABS: Calcium 8.8 mg/dL (8.5-10.1)
[2018-06-03 14:35] LABS: Anion Gap 7 meq/L (5-15); Blood Urea Nitrogen 15 mg/dL (7-18); Carbon Dioxide 25.9 meq/L (21.0-32.0); Glucose,Random 94 mg/dL (74-106); Magnesium 2.2 mg/dL (1.5-2.5)
[2018-06-03 14:36] LABS: Activated Partial Thrombo Time 25.9 sec (24.3-30.1); Prothrombin Time 10.2 sec (9.8-11.6)
[2018-06-03 14:38] LABS: Glomerular Filtration Rate 54 mL/min (>89)
[2018-06-03 14:41] LABS: Creatine Kinase 247 U/L (26-192)
[2018-06-03 14:55] LABS: CKMB Percent 1.4 % (0.0-4.0); Creatine Kinase MB 3.4 ng/mL (0.5-3.6)
[2018-06-03] MEDS ORDERED: Acetaminophen 500 MG Tablet PO PRN (16:23)
--- NOTE | 2018-06-03 16:39 | P.HP ---
History of Present Illness Primary Care Physician: Lexy Wong MD Chief Complaint: Chest pain History of Present Illness: 73-year-old female with known history of asthma who presented to the emergency department for reevaluation of chest discomfort. It appears that the patient has presented herself to the emergency department on multiple occasions since 05/30/18 because of persistent chest discomfort. Patient states that her pain started approximately 05/30/18 and remained constant in the midsternal chest area worse whenever she takes a deep breath, worse on palpation, pain in the left arm. She states that she had nausea but no vomiting. Denies any lightheadedness or dizziness. Patient did have workup done in the chest pain center on 05/31/18. At that time it was planned that patient undergo myocardial perfusion study to rule out any underlying ischemia. However medical records indicate that the patient signed out AGAINST MEDICAL ADVICE. When discussed with the patient she states that the physician talked to her and told her that there is no treatment for the calcium in her heart so she decided not to undergo the testing. Patient still with the persistent chest discomfort she does indicate that it has been worse since she was outside [place]. It is reproducible on palpation. Patient presented to the emergency department because the pain has never resolved. It is a constant pain with a crescendo type discomfort anywhere from 4/10 on a pain scale to 8/10 on a pain scale. Patient was evaluated by the emergency room physician and he recommended that the patient be observed in the chest pain center for further evaluation and management. Upon leaving the hospital on her last visit the patient indicates that she was given prescription for Zithromax and steroid. She is still taking that at this time. - Diagnosis (1) Chest pain Review of Systems All other systems reviewed negative except as stated in HPI Cardiovascular: Reports chest pain, Reports radiating jaw, neck or arm pain Gastrointestinal: Reports nausea PMFSH - History History Provided By: Patient - Medical History Medical History: Medical History (Last Updated 06/03/18 @ 16:32 by JEAN Oliva) Asthma (Acute) Mitral valve prolapse (Acute) History of hysterectomy - Surgical History Surgical History: Surgical History (Last Updated 06/03/18 @ 16:32 by JEAN Oliva) History of cholecystectomy - Family History Family History: Family History (Last Updated 07/09/18 @ 16:34 by JEAN Oliva) Father Family history of heart disease Mother Family history of heart disease Family history of diabetes mellitus - Tobacco History Second Hand Smoke Exposure: No Smoking Status: Former smoker Tobacco Type: Cigars - Alcohol History How Often Do You Have a Drink Containing Alcohol: Never - Substance Use History Substance History: No History of Abuse - Travel History Recent Travel in the [place] Within the Last 8 Weeks: No Recent Travel Out of the Country Within the Last 8 Weeks: No - Immunization History Tetanus Immunization: Unsure Hx Influenza Vaccine This Season: No Medications and Allergies Active Medications: Active Medications Sodium Chloride (Ns Flush) 2 ml IV.FLUSH UNSCH PRN PRN Reason: FLUSH AFTER USING IV ACCESS Allergies Allergy/AdvReac Type Severity Reaction Status Date / Time No Known Allergies Allergy Verified 06/03/18 13:44 Home Medications Medication Instructions Recorded Confirmed Type No Known Home Medications 06/03/18 06/03/18 History Exam Vital signs: Vital Signs 06/03/18 13:44 06/03/18 13:58 06/03/18 14:02 Temperature 98.1 F Pulse Rate 87 75 76 Respiratory Rate 18 Blood Pressure 152/93 H 151/73 H Pulse Oximetry 95 97 97 06/03/18 14:15 06/03/18 14:45 06/03/18 16:09 Temperature Pulse Rate 79 69 73 Respiratory Rate 18 18 18 Blood Pressure 140/71 124/72 118/63 Pulse Oximetry 95 97 97 Intake & Output 06/02/18 06/03/18 06/03/18 18:59 06:59 18:59 Weight 65 kg Narrative: GENERAL: Well-developed, well-nourished, in no acute distress. alert and orientated HEENT: Head is normocephalic without any lesions or masses noted. Facial features are symmetric. Eyes: Pupils equal round reactive to light. Extraocular muscles are intact. Conjunctivae were clear. Oropharyngeal: Pharynx without any erythema edema. Tongue is midline without deviation. Buccal mucosa is moist without any masses or lesions NECK: Supple without any masses. Trachea midline no deviation. No JVD, no bruits are appreciated CARDIAC: Regular rhythm, regular rate. S1/S2 are heard. No murmurs gallops or rubs. Reproducible chest wall tenderness over the manubrium. LUNGS: Clear to auscultation bilaterally. No wheeze, rhonchi or rales. No use of accessory muscles on inspiration or expiration. Patient does have pain in the stated area on deep inspiration ABDOMEN: Soft, nontender. Nondistended. Bowel sounds heard in all 4 quadrants. No organomegaly or masses. Negative rebound, negative guarding EXTREMITIES: No edema, pulses are equal bilaterally. No cyanosis or clubbing NEUROLOGY: Mood and affect appear appropriate. Cranial nerves II through XII grossly intact. Muscle strength 5/5 in upper and lower extremities bilaterally. Deep tendon reflexes are 2+ in upper and lower extremities bilaterally. Results - Labs CBC & Chem 7: 06/03/18 14:10 06/03/18 14:10 Labs: Laboratory Results - last 24 hr 06/03/18 06/03/18 06/03/18 14:10 14:10 14:10 CBC w Diff Auto diff final WBC 4.5 RBC 4.50 Hgb 14.1 Hct 41.7 MCV 92.6 MCH 31.4 MCHC 33.9 RDW 12.6 Plt Count 166 MPV 8.9 Neut % (Auto) 61.6 Lymph % (Auto) 29.7 [place] % (Auto) 7.9 Eos % (Auto) 0.0 Baso % (Auto) 0.8 Neut # (Auto) 2.8 Lymph # (Auto) 1.3 [place] # (Auto) 0.4 Eos # (Auto) 0.0 Baso # (Auto) 0.0 WBC Differential . Differential Comment . PT 10.2 INR 1.0 APTT 25.9 Sodium 142 Potassium 3.9 Chloride 109 H Carbon Dioxide 25.9 Anion Gap 7 BUN 15 Creatinine 1.00 Estimated GFR 54 L Random Glucose 94 Calcium 8.8 Magnesium 2.2 Total Creatine Kinase 247 H CK-MB (CK-2) 3.4 CK-MB (CK-2) % 1.4 Troponin I Less than 0.02 L Caprini VTE Risk Assessment Caprini VTE Risk Assessment: Moderate/High Risk (score >= 2) Caprini Risk Assessment Model: Point Value = 1 Point Value = 2 Point Value = 3 Point Value = 5 Age 41-60 Minor surgery BMI > 25 kg/m2 Swollen legs Varicose veins or History of unexplained or recurrent spontaneous Oral contraceptives or hormone replacement Sepsis (< 1 month) Serious lung disease, including pneumonia (< 1 month) Abnormal pulmonary function Acute myocardial infarction Congestive heart failure (< 1 month) History of inflammatory bowel disease Medical patient at bed rest Age 61-74 Arthroscopic surgery Major open surgery (> 45 min) Laparoscopic surgery (> 45 min) Malignancy Confined to bed (> 72 hours) Immobilizing plaster cast Central venous access Age >= 75 History of VTE Family history of VTE Factor V Leiden Prothrombin [id number] Lupus anticoagulant Anticardiolipin antibodies Elevated serum homocysteine Heparin-induced thrombocytopenia Other congenital or acquired thrombophilia Stroke (< 1 month) Elective arthroplasty Hip, pelvis, or leg fracture Acute spinal cord injury (< 1 month) Prophylaxis Regimen: Total Risk Factor Score Risk Level Prophylaxis Regimen 0-1 Low Early ambulation 2 Moderate Order ONE of the following: *Sequential Compression Device (SCD) *Heparin 5000 units SQ BID 3-4 Higher Order ONE of the following medications: *Heparin 5000 units SQ TID *Enoxaparin/Lovenox 40 mg SQ daily (WT < 150 kg, CrCl > 30 mL/min) *Enoxaparin/Lovenox 30 mg SQ daily (WT < 150 kg, CrCl > 10-29 mL/min) *Enoxaparin/Lovenox 30 mg SQ BID (WT < 150 kg, CrCl > 30 mL/min) AND/OR *Sequential Compression Device (SCD) 5 or more Highest Order ONE of the following medications: *Heparin 5000 units SQ TID (Preferred with Epidurals) *Enoxaparin/Lovenox 40 mg SQ daily (WT < 150 kg, CrCl > 30 mL/min) *Enoxaparin/Lovenox 30 mg SQ daily (WT < 150 kg, CrCl > 10-29 mL/min) *Enoxaparin/Lovenox 30 mg SQ BID (WT < 150 kg, CrCl > 30 mL/min) AND *Sequential Compression Device (SCD) Assessment and Plan - Assessment (1) Chest pain Code(s): R07.9 - Chest pain, unspecified Status: Acute Plan: -Patient with risk factors to include age, postmenopausal without exogenous hormones, family history of heart disease, history of tobacco use -Patient's symptoms are rather atypical, they are reproducible on palpation and pleuritic in nature -Patient has had persistently negative troponin 5 times over the last 4 days, will continue to trend to confirm that they remain negative to rule out any underlying ischemia -Serial EKGs which so far a total of 5 in the last 4 days have remained normal sinus rhythm without any changes -We will pursue myocardial perfusion study to rule out any underlying ischemia, unable to do today secondary to patient having caffeine. We will plan testing in the a.m. -Discussed with the patient that if the findings are unremarkable and do not show any signs of ischemia. Other etiology could include pleuritic or muscle skeletal in nature. -Continue aspirin, nitroglycerin as needed -Continue monitor telemetry -Obtain lipid panel - Plan DVT prevention -Sequential compression devices
[2018-06-03] MEDS: Morphine Inj 4 MG/ML Vial IV.PUSH PRN ×2 (17:20→21:22)
[2018-06-03 17:56] LABS: Creatine Kinase 217 U/L (26-192)
[2018-06-03 18:08] LABS: CKMB Percent 1.2 % (0.0-4.0); Creatine Kinase MB 2.7 ng/mL (0.5-3.6)
[2018-06-03 21:02] LABS: Creatine Kinase 206 U/L (26-192)
[2018-06-03 21:14] LABS: CKMB Percent 1.2 % (0.0-4.0); Creatine Kinase MB 2.5 ng/mL (0.5-3.6)
--- NOTE | 2018-06-04 07:45 | P.PNIM ---
Subjective Interval history: Follow up chest pain. Patient seen and examined, lying in bed in no apparent distress. Still complaints of pain to midsternal chest, worse with palpation. Patients vitals are stable, labs stable. Awaiting myocardial perfusion scan today. Physical Exam Vital signs: Vital Signs 06/03/18 13:44 06/03/18 13:58 06/03/18 14:02 Temperature 98.1 F Pulse Rate 87 75 76 Respiratory Rate 18 18 Blood Pressure 152/93 H 151/73 H Pulse Oximetry 95 97 97 06/03/18 14:15 06/03/18 14:45 06/03/18 16:09 Temperature Pulse Rate 79 69 73 Respiratory Rate 18 18 18 Blood Pressure 140/71 124/72 118/63 Pulse Oximetry 95 97 97 06/03/18 17:10 06/03/18 18:19 06/03/18 20:00 Temperature 97.3 F L 99.4 F Pulse Rate 70 126 H 59 L Respiratory Rate 18 20 Blood Pressure 157/84 H 136/84 Pulse Oximetry 94 L 98 06/03/18 20:52 06/04/18 00:00 06/04/18 03:30 Temperature 96.7 F L Pulse Rate 66 82 Respiratory Rate 18 Blood Pressure 168/72 H 155/81 H Pulse Oximetry 98 98 06/04/18 03:43 06/04/18 03:47 Temperature 97.6 F 97.6 F Pulse Rate 77 82 Respiratory Rate 18 18 Blood Pressure 117/60 117/60 Pulse Oximetry 94 L 94 L Intake & Output 06/03/18 06/04/18 06/04/18 18:59 06:59 18:59 Intake Total 480 / 480 0 / 0 Output Total 60 / 60 Balance 480 / 480 -60 / -60 Weight 66.678 kg 70.5 kg Intake: Oral 480 / 480 0 / 0 Output: Urine 60 / 60 Other: # Voids 2 1 Date of Last Bowel Movement 06/03/18 # Bowel Movements 0 Weight On Admission 66.678 kg - Constitutional no acute distress - Routine HEENT Exam Head: Present: normocephalic Eye: Present: EOMI, PERRL ENT: Present: mucous membranes moist - Routine Neck Exam Present: supple - Routine Cardiovascular Exam Present: RRR, S1, S2 - Routine Abdominal Exam Present: soft - Routine Skin Exam Present: intact - Routine Neurological Exam Present: alert, oriented X3 - Detailed Neurological Exam: Coma Scale Eye Opening: Spontaneous Verbal Response: Oriented Motor Response: Obey commands [place] Coma Scale Total: 15 - Routine Psychiatric Exam Present: normal affect Results - Labs CBC & Chem 7: 06/03/18 14:10 06/03/18 14:10 Laboratory Results - last 24 hr 06/03/18 06/03/18 06/03/18 14:10 14:10 14:10 CBC w Diff Auto diff final WBC 4.5 RBC 4.50 Hgb 14.1 Hct 41.7 MCV 92.6 MCH 31.4 MCHC 33.9 RDW 12.6 Plt Count 166 MPV 8.9 Neut % (Auto) 61.6 Lymph % (Auto) 29.7 [place] % (Auto) 7.9 Eos % (Auto) 0.0 Baso % (Auto) 0.8 Neut # (Auto) 2.8 Lymph # (Auto) 1.3 [place] # (Auto) 0.4 Eos # (Auto) 0.0 Baso # (Auto) 0.0 WBC Differential . Differential Comment . PT 10.2 INR 1.0 APTT 25.9 Sodium 142 Potassium 3.9 Chloride 109 H Carbon Dioxide 25.9 Anion Gap 7 BUN 15 Creatinine 1.00 Estimated GFR 54 L Random Glucose 94 Calcium 8.8 Magnesium 2.2 Total Creatine Kinase 247 H CK-MB (CK-2) 3.4 CK-MB (CK-2) % 1.4 Troponin I Less than 0.02 L 06/03/18 06/03/18 17:28 20:30 CBC w Diff WBC RBC Hgb Hct MCV MCH MCHC RDW Plt Count MPV Neut % (Auto) Lymph % (Auto) [place] % (Auto) Eos % (Auto) Baso % (Auto) Neut # (Auto) Lymph # (Auto) [place] # (Auto) Eos # (Auto) Baso # (Auto) WBC Differential Differential Comment PT INR APTT Sodium Potassium Chloride Carbon Dioxide Anion Gap BUN Creatinine Estimated GFR Random Glucose Calcium Magnesium Total Creatine Kinase 217 H 206 H CK-MB (CK-2) 2.7 2.5 CK-MB (CK-2) % 1.2 1.2 Troponin I Less than 0.02 L Less than 0.02 L Assessment and Plan - Assessment (1) Chest pain Code(s): R07.9 - Chest pain, unspecified Status: Acute Plan: -Patient with risk factors to include age, postmenopausal without exogenous hormones, family history of heart disease, history of tobacco use -Patient's symptoms are rather atypical, they are reproducible on palpation and pleuritic in nature -Patient has had persistently negative troponin 5 times over the last 4 days, trend is negative. -Serial EKGs which so far a total of 5 in the last 4 days have remained normal sinus rhythm without any changes -Will pursue myocardial perfusion study to rule out any underlying ischemia. Plan for this am. -Discussed with the patient that if the findings are unremarkable and do not show any signs of ischemia. Other etiology could include pleuritic or muscle skeletal in nature. -Continue aspirin, nitroglycerin as needed -Continue monitor telemetry -Obtain lipid panel, pending. - Further hospitalization and treatment plan will depend on myocardial perfusion scan results. - Plan DVT Prophylaxis: SCDs. Discharge Planning: If myocardial perfusion scan negative, patient will discharge home.
[2018-06-04] MEDS ORDERED: Ketorolac Inj 30 MG/ML (IVP) Vial IV.PUSH ONE (08:00)
[2018-06-04] MEDS ORDERED: Aspirin 325 MG Tablet PO SCH (09:00)
[2018-06-04] MEDS ORDERED: Regadenoson Inj 0.4 MG/5 ML Syringe IV.PUSH ONE (11:37)
[2018-06-04] MEDS: Morphine Inj 4 MG/ML Vial IV.PUSH PRN (12:25)
--- NOTE | 2018-06-04 12:35 | NM ---
EXAM DATE: 06/04/2018 12:28 PM EDT AGE/SEX: 73 years / Female INDICATIONS:Angina. . Midsternal chest pain. CLINICAL DATA: This is the patient's initial encounter. Patient reports that signs and symptoms have been present for 1 day and indicates a pain score of 6/10. MEDICAL/SURGICAL HISTORY: . Asthma Hysterectomy. Cholecystectomy. COMPARISON: No prior exams available for comparison. DOSE: 8.2 mCi Tc 99m Myoview at rest 25.4 mCi [id number]-Giuasgy at stress 0.4 mg Lexiscan STRESS SYMPTOMS: Dyspnea, chest pain, stomach pain, heart racing and anxious. EJECTION FRACTION: >70% % TECHNIQUE: The patient underwent pharmacologic stress with infusion of prescribed dose. Continuous ECG tracing was monitored during stress. Gated SPECT imaging was performed after stress and conventi onal SPECT imaging was performed at rest. The examination was performed on a SPECT/CT scanner, both attenuation and non-corrected datasets were reviewed. FINDINGS: Distribution: The maximum perfused segment at stress is in the lateral wall. Perfusion Study: The pattern of perfusion at stress is within normal limits. Gated Study: There are intact wall motion and wall thickening without hypokinetic or dyskinetic segm ents. The ejection fraction is calculated at >70%%. RISK CATEGORY: Low (<1% Annual Motality Rate) CONCLUSION: 1. Unremarkable myocardial perfusion examination. Electronically signed by: Nilesh Javier MD 06/04/2018 12:34 PM EDT
[2018-06-04 12:51] LABS: Chol/HDL Ratio 5.58 Ratio; HDL Cholesterol 49.2 mg/dL (40.0-60.0)
--- NOTE | 2018-06-04 17:20 | ECG ---
Date Performed: 06/03/2018 Time Performed: 20:30:21 PTAGE: 73 years EKG: Sinus rhythm NORMAL ECG PREVIOUS TRACING : 06/03/2018 17.24 Since the previous tracing, no significant change noted DOCTOR: María Joseph Interpretating Date/Time 06/04/2018 17:20:18
--- NOTE | 2018-06-04 17:20 | ECG ---
Date Performed: 06/03/2018 Time Performed: 13:40:23 PTAGE: 73 years EKG: Sinus rhythm WITH SHORT ID INTERVAL BORDERLINE ECG PREVIOUS TRACING : 06/02/2018 06.07 Since the previous tracing, no significant change noted DOCTOR: María Joseph Interpretating Date/Time 06/04/2018 17:19:53
--- NOTE | 2018-06-04 17:20 | ECG ---
Date Performed: 06/03/2018 Time Performed: 17:24:08 PTAGE: 73 years EKG: Sinus rhythm NORMAL ECG PREVIOUS TRACING : 06/03/2018 13.40 Since the previous tracing, no significant change noted DOCTOR: María Joseph Interpretating Date/Time 06/04/2018 17:20:03
--- NOTE | 2018-06-10 17:44 | TR ---
Date Performed: 06/04/2018 Time Performed: 11:47:24 DOCTOR: Ramesh Ibarra DRUG LIST: CLINICAL HISTORY: CHEST PAIN REASON FOR TEST: Chest pain REASON FOR ENDING: OBSERVATION: CONCLUSION: COMMENTS: Lexiscan stress test was performed under standard four minute protocol. Radionuclide was injected one minute prior to ending the test. No electrocardiographic abormalities were present t o suggest ischemia. Nuclear imaging and interpretation are pending.
== END 2018-06-04 13:46 | disposition home or self-care (01) ==
LOC: PH3 13:33 → PHED 13:33 → PHEDA 13:33 → PH3 16:48
PROVIDERS: ADMIT Internal Medicine; ATTEND Internal Medicine
DX: R06.02 Shortness of breath; Z83.3 Family history of diabetes mellitus; Z90.710 Acquired absence of both cervix and uterus; J45.909 Unspecified asthma, uncomplicated; M79.602 Pain in left arm; R07.9 Chest pain, unspecified; R11.0 Nausea; Z82.49 Family history of ischemic heart disease and other diseases of the circulatory system; R94.39 Abnormal result of other cardiovascular function study; I34.1 Nonrheumatic mitral (valve) prolapse